=== PATIENT | female | born 1985 | race American Indian/Alaskan Native ===

== ENCOUNTER 2018-09-12 06:14 | Emergency (ER) | payer MEDICAID, OTHER ==
[2018-09-12 06:34] VITALS: BP 138/75
[2018-09-12 07:04] LABS: Basophils % (Auto) 0.4 % (0.0-1.8); Eosinophils # (Auto) 0.1 K/mm3 (0.0-0.4); Eosinophils % (Auto) 1.8 % (0.0-4.3); Hematocrit 32.4 % (30.3-42.9); Hemoglobin 11.3 gm/dl (10.1-14.3); Lymphocytes # (Auto) 1.1 K/mm3 (1.2-5.4); Lymphocytes % (Auto) 13.8 % (13.4-35.0); Mean Corpuscular HGB Conc 35 % (30-34); Mean Corpuscular Volume 93 fl (79-97); Monocytes # (Auto) 0.5 K/mm3 (0.0-0.8); Monocytes % (Auto) 6.6 % (0.0-7.3); Platelet Count 226 K/mm3 (140-440); Red Cell Distribution Width 12.7 % (13.2-15.2)
[2018-09-12 07:23] LABS: BUN/Creatinine Ratio 22; Blood Urea Nitrogen 13 mg/dL (7-17); Calcium 8.5 mg/dL (8.4-10.2); Hemolysis Index 3
--- NOTE | 2018-09-12 08:24 | Emergency Department Report ---
ED Female HPI - General Chief complaint: Upper Respiratory Infection Stated complaint: NAMAN/EMESIS/CP Time Seen by Provider: 09/12/18 07:38 Source: patient Mode of arrival: Ambulatory Limitations: No Limitations - History of Present Illness Initial comments: Ms. Oropeza is a healthy 32-year-old female. She presents with her third today. She has 2 healthy children. Initially she came to the ER for evaluation of upper respiratory symptoms. She has nasal congestion cough productive cough. She also has nausea vomiting diarrhea. After obtaining results from triage labs, we discovered that she was . She stated that she forgot that she missed a period. Her last menstrual period began on August 14. She has regular menstrual cycles. She denies chest pain. She denies abdominal cramping. She denies vaginal bleeding. Complaint: other (missed period) Are you Now?: Yes Last Menstrual Period: 08/14/18 EDC: 05/21/19 Associated Symptoms: other (2 days of nasal congestion chest congestion prod uctive cough) - Related Data Previous Rx's Medication Instructions Recorded Last Taken Type Amoxicillin [Trimox CAP] 500 mg PO Q8H 7 Days #21 capsule 09/12/18 Unknown Rx Promethazine [Phenergan] 25 mg PO Q6HR PRN #20 tab 09/12/18 Unknown Rx Allergies Allergy/AdvReac Type Severity Reaction Status Date / Time No Known Allergies Allergy Unverified 09/12/18 06:35 ED Review of Systems ROS: Stated complaint: NAMAN/EMESIS/CP Other details as noted in HPI Comment: All other systems reviewed and negative Constitutional: denies: fever, malaise ENT: congestion Respiratory: cough Gastrointestinal: nausea, vomiting, diarrhea. denies: abdominal pain ED Past Medical Hx - Past Medical History Previous Medical History?: No - Surgical History Past Surgical History?: Yes Additional Surgical History: right roger repair - Social History Smoking Status: Current Every Day Smoker Substance Use Type: None - Medications Home Medications: Home Medications Medication Instructions Recorded Confirmed Last Taken Type Amoxicillin [Trimox CAP] 500 mg PO Q8H 7 Days #21 capsule 09/12/18 Unknown Rx Promethazine [Phenergan] 25 mg PO Q6HR PRN #20 tab 09/12/18 Unknown Rx ED Physical Exam - General Limitations: No Limitations General appearance: alert, in no apparent distress - Head Head exam: Present: atraumatic, normocephalic - Eye Eye exam: Present: normal appearance - ENT ENT exam: Present: mucous membranes moist - Neck Neck exam: Present: normal inspection, full ROM - Respiratory Respiratory exam: Present: normal lung sounds bilaterally. Absent: respiratory distress, wheezes, rales, rhonchi, stridor - Cardiovascular Cardiovascular Exam: Present: regular rate, normal rhythm, normal heart sounds. Absent: systolic murmur, diastolic murmur, rubs, gallop - GI/Abdominal GI/Abdominal exam: Present: soft, normal bowel sounds. Absent: distended, tenderness, guarding, rebound - Extremities Exam Extremities exam: Present: normal inspection - Back Exam Back exam: Present: normal inspection - Neurological Exam Neurological exam: Present: alert, oriented X3 - Psychiatric Psychiatric exam: Present: normal affect, normal mood - Skin Skin exam: Present: warm, dry, intact, normal color. Absent: rash ED Course Vital Signs 09/12/18 06:28 Temperature 98.0 F Pulse Rate 90 Respiratory 16 Rate Blood Pressure 138/75 O2 Sat by Pulse 99 Oximetry ED Medical Decision Making - Lab Data Result diagrams: 09/12/18 06:53 09/12/18 06:53 Laboratory Results - last 24 hr 09/12/18 09/12/18 09/12/18 06:53 06:53 06:53 WBC 8.0 RBC 3.50 L Hgb 11.3 Hct 32.4 MCV 93 MCH 32 MCHC 35 H RDW 12.7 L Plt Count 226 Lymph % (Auto) 13.8 Victoria % (Auto) 6.6 Eos % (Auto) 1.8 Baso % (Auto) 0.4 Lymph # 1.1 L Victoria # 0.5 Eos # 0.1 Baso # 0.0 Seg Neutrophils % 77.4 H Seg Neutrophils # 6.2 Sodium 137 Potassium 3.3 L Chloride 104.7 Carbon Dioxide 22 Anion Gap 14 BUN 13 Creatinine 0.6 L Estimated GFR > 60 BUN/Creatinine Ratio 22 Glucose 101 H Calcium 8.5 HCG, Qual Positive - EKG Data 09/12/18 08:23 NSR nl rate nl axis nl intervals no ST-T signs of ischemia no ST elevation rate 95 beats a minute - Medical Decision Making Ms. Oropeza presents for URI and lower respiratory symptoms. Prescribed amoxicillin for acute bronchitis in the setting of tobacco use which antibiotic are indicated. Suspected nausea vomiting related to morning sickness. With mild diarrhea suspect also viral component. Also prescribed promethazine. Critical care attestation.: If time is entered above; I have spent that time in minutes in the direct care of this critically ill patient, excluding procedure time. ED Disposition Clinical Impression: First trimester , Acute bronchitis Disposition: TO HOME OR SELFCARE Is pt being admited?: No Does the pt Need Aspirin: No Condition: Stable Instructions: Acute Bronchitis (ED), Morning Sickness (ED) Prescriptions: Promethazine [Phenergan] 25 mg PO Q6HR PRN #20 tab PRN Reason: Nausea Amoxicillin [Trimox CAP] 500 mg PO Q8H 7 Days #21 capsule Referrals: NIKOLAI NOVAK MD [Primary Care Provider] - 3-5 Days Forms: Work/School Release Form(ED)
== END 2018-09-12 08:43 | disposition home or self-care (01) ==
LOC: ED 06:14
DX: O99.511 Diseases of the respiratory system complicating pregnancy, first trimester (principal); J02.9 Acute pharyngitis, unspecified; F17.200 Nicotine dependence, unspecified, uncomplicated; Z3A.01 Less than 8 weeks gestation of pregnancy
CPT/HCPCS: 36415; 80048; 84703; 85025; 93005; 93010

== ENCOUNTER 2018-09-14 11:43 | Emergency (ER) | payer SELFPAY ==
[2018-09-14 11:52] VITALS: BP 130/75
--- NOTE | 2018-09-14 12:12 | Event Note ---
ED Screening Note Date of service: 09/14/18 Time: 11:57 ED Screening Note: 32 y/o female comes in for vaginal spotting started this morning. Only sees when she wipes. No cramping. Was seen here 2 days ago to be found . Patient is having nausea no vomiting. . This initial assessment/diagnostic orders/clinical plan/treatment(s) is/are subject to change based on patients health status, clinical progression and re- assessment by fellow clinical providers in the ED. Further treatment and workup at subsequent clinical providers discretion. Patient/guardian urged not to elope from the ED as their condition may be serious if not clinically assessed and managed. Initial orders include:
[2018-09-14 12:45] LABS: Bacteria,Urine 1+ /HPF (Negative); Bilirubin,Urine NEG (Negative); Blood,Urine NEG (Negative); Color,Urine Yellow (Yellow); Mucus,Urine 3+ /HPF; Protein,Urine <15 mg/dL mg/dL (Negative)
== END 2018-09-14 14:08 | disposition left against medical advice (07) ==
LOC: ED 11:43
DX: N93.9 Abnormal uterine and vaginal bleeding, unspecified (principal); Z53.21 Procedure and treatment not carried out due to patient leaving prior to being seen by health care provider
CPT/HCPCS: 36415; 81001; 84702